=== PATIENT | female | born 1955 ===

== ENCOUNTER 2018-11-06 17:10 | Inpatient (IN) | payer OTHER ==
[~2018-11-06] VITALS: Ht 154.9 cm; Wt 97.0 kg
[2018-11-06 17:16] VITALS: Ht 154.9 cm; Wt 97.0 kg
--- NOTE | 2018-11-06 17:55 | NUR ---
BIB FAMILY MEMBER C/O PALPITATION AFTER DRINKING COFFEE TODAY. ONSET 1500. STATES UNUSUAL SENSATION TO CHEST. COMFORT MEASURES AND SUPPORTIVE CARE INITIATED. SEE BY DR. PERSAUD.
[2018-11-06 18:25] LABS: BASOPHIL % 0.9 % (0-2); PLATELET COUNT 279 x10^3mcL (130-400); RED CELL DISTRIBUTION WIDTH 14.5 % (11.5-14.5)
--- NOTE | 2018-11-06 18:31 | NUR ---
PT RESTING AT THIS TIME. AWAIT LAB RESULTS. DENIES ANY ACUTE DISCOMFORT. TO CONTINUE TO MONITOR.
[2018-11-06 18:45] LABS: CALCIUM 9.1 mg/dL (8.5-10.1); CARBON DIOXIDE 30.3 mmol/L (21-32); CHLORIDE SERUM 107 mmol/L (98-107); CREATININE SERUM 0.8 mg/dL (0.6-1.0); GFR1 > 60 mL/min; GLUCOSE SERUM 115 mg/dL (74-106); POTASSIUM SERUM 3.3 mmol/L (3.5-5.1); SODIUM SERUM 144 mmol/L (136-145)
[2018-11-06 18:58] LABS: ALBUMIN 3.6 g/dL (3.4-5.0); ALKALINE PHOSPHATASE 85 U/L (46-116); ALT/SGPT 25 U/L (14-59); AST/SGOT 18 U/L (15-37); BILIRUBIN TOTAL 0.4 mg/dL (0.20-1.00); TOTAL PROTEIN, SERUM 7.6 g/dL (6.4-8.2)
--- NOTE | 2018-11-06 19:05 | NUR ---
PT REPORT RECEIVED FROM TOKO TUG CAPTAIN TO ASSUME PT CARE.
--- NOTE | 2018-11-06 19:58 | NUR ---
PT REPORT CALLED TO JAMES ENGLAND TO ASSUME PT CARE.
--- NOTE | 2018-11-06 20:49 | NUR ---
PT TRANSFERRED TO 255B BY [facility] BY MAI KYLE AND ZOE RN. PT ON FULL CM FOR TRANSFER. PT AOX4, RESP EVEN AND UNLABORED, NO ACUTE DISTRESS NOTED. PT ACCEPTED BY JAMES ENGLAND TO ASSUME PT CARE. PT TRANSFERRED FROM [facility] TO BED WITHOUT INCIDENT.
[2018-11-06 21:15] LABS: CHOLESTEROL/HDL RATIO 4.1; MAGNESIUM 2.3 mg/dL (1.8-2.4); PHOSPHOROUS 3.7 mg/dL (2.5-4.9)
[2018-11-06 21:23] VITALS: BP 133/68
--- NOTE | 2018-11-06 21:26 | NUR ---
RECEIVED PT FROM ED VIA JUDY. ORIENTED PT TO ROOM AND SURROUNDINGS. IV NOTED TO RAC PATENT AND INTACT. TELE 6 PLACED ON PT READING SR WITH PVC. INSTRUCTED PT ON THE USE OF CALL LIGHT FOR ASSISTANCE. ENDORSED PT TO PRIMARY NURSE JAMES
--- NOTE | 2018-11-06 23:00 | NUR ---
NEW ADM FROM ED. RESTING QUIETLY IN BED. A/O X4, DENIES HEADACHE/DIZZINESS.SR WITH OCCA. PVCS ON THE MONITOR, DENIES CP OR ANY DISCOMFORT AT THIS TIME. RESP. EVEN AND UNLABORED, LUNG SOUNDS CLEAR. ON ROOM AIR, NO ACUTE DISTRESS NOTED. AFEBRILE AND VITAL SIGNS STABLE. ABD. SOFT , NON DISTENDED, BS ACTIVE, NO N/V NOTED.HL TO RAC, INTACT AND PATENT. SKIN WARM AND DRY TO TOUCH. INTACT, TRACE EDEMA TO BLE. ALL PULSES PALPABLE. AMBULATORY. CALL LIGHT WITHIN REACH. WILL CONTINUE TO MONITOR.
--- NOTE | 2018-11-06 23:31 | NUR ---
DUE MEDS GIVEN ORDERED, TRISTAN. WELL. WILL CONTINUE TO MONITOR.
--- NOTE | 2018-11-07 01:21 | NUR ---
RESTING QUIETLY IN BED, WITH EYES CLOSED, APPEARS ASLEEP, EASILY AROUSABLE . RESP. EVEN AND UNLABORED. NO ACUTE DISTRESS NOTED. WILL CONTINUE TO MONITOR.
[2018-11-07 06:03] VITALS: BP 128/62
--- NOTE | 2018-11-07 06:04 | NUR ---
NO COMPLAINTS NOTED. DENIES CP OR ANY DISCOMFORT. RESP. EVEN AND UNLABORED. NO ACUTE DISTRESS NOTED. AFEBRILE AND VITAL SIGNS STABLE. KEPT COMFORTABLE. CALL LIGHT WITHIN REACH. WILL CONTINUE TO MONITOR.
--- NOTE | 2018-11-07 08:02 | NUR ---
RECEIVED PATIENT FROM NIGHT NURSE. AWAKE, ALERT AND APPEARS ORIENTED. MONITOR SHOWING SINUS RHYTHM; RATE 60'S. NO ECTOPIES NOTED. NO C/O CHEST PAIN. RESPIRATIONS REGULAR. NO SOB NOTED. SITTING UP IN BED EATING BREAKFAST. IV SALINE LOCKED.
[2018-11-07 08:53] VITALS: BP 124/62
--- NOTE | 2018-11-07 10:30 | NUR ---
SEEN BY DR CHATMAN DURING MORNING ROUNDS. SPOKE WITH PATIENT IN STATELESS. ECHOCARDIOGRAM COMPLETED.
[2018-11-07 11:55] VITALS: BP 100/51
[2018-11-07 11:57] VITALS: BP 123/79
--- NOTE | 2018-11-07 13:37 | NUR ---
SEEN BY DR GARY (CARDIOLOGY). NEW ORDERS RECEIVED.
--- NOTE | 2018-11-07 14:21 | NUR ---
GIVEN 40 MEQ KCL PO FOR K+ OF 3.3
[2018-11-07 16:47] VITALS: BP 127/56
--- NOTE | 2018-11-07 18:22 | NUR ---
AT 1630 - PLAN TO DC HOME ONCE XARALTO HAS BEEN APPROVED BY INSURANCE. AT 1710 - COMMENCED ON XARELTO. FIST DOSE ADMINISTERED. SPOKE WITH PATIENT AND FAMILY ABOUT PLAN OF CARE. AT 1740 - SPOKE WITH [facility] [phone], INSTRUCTED TO CHECK IF XARELTO HAD BEEN APPROVED FOR PATIENT. TOLD THAT [facility] DOES NOT WORK WITH PATIENT'S INSURANCE ([employer]). AT 1825 - RESTING QUIETLY. MONITOR SHOWING SINUS RHYHTM; RATE 65. NO ECTOPEIS NOTED. NO C/O CHEST PAIN. WILL ENDORSE CARE TO NIGHT NURSE. -
--- NOTE | 2018-11-07 18:44 | NUR ---
BP NOW 133/76. HR 80'S. SINUS RHYTHM,. NO CHEST PAIN. WILL ENDORSE CARE TO NIGHT NURSE.
--- NOTE | 2018-11-07 19:35 | NUR ---
SHIFT REASSESSMENT DONE.PATIENT ALERT AND ORIENTED,MAINLY SYRIAC,NEEDS ANTICIPATED.CXR MILD VASCULAR CONGESTION,HEPLOCK ONLY.TELE 6 SR.NO CHEST PAIN.SKIN INTACT.ON XARELTO.VOIDING,CALL LIGHT IN REACH.
--- NOTE | 2018-11-07 20:23 | NUR ---
NO PM MEDS AT THIS TIME,NO COMPLAINT.CALL LIGHT IN REACH.
[2018-11-07 20:44] VITALS: BP 135/76
--- NOTE | 2018-11-07 23:23 | NUR ---
PATIENT CHECKED AT INTERVALS FOR NEEDS AND SAFETY.CALL LIGHT IN REACH.
--- NOTE | 2018-11-08 04:50 | NUR ---
PATIENT SLEEPING COMFORTABLY,CALL LIGHT IN REACH.
[2018-11-08 05:43] VITALS: BP 130/70
--- NOTE | 2018-11-08 05:59 | NUR ---
I AND O MEASURED.NO MAJOR CHANGES THIS SHIFT.WILL ENDORSE TO NEXT SHIFT.
[2018-11-08 06:53] LABS: CALCIUM 8.7 mg/dL (8.5-10.1); CARBON DIOXIDE 31.3 mmol/L (21-32); CHLORIDE SERUM 110 mmol/L (98-107); CREATININE SERUM 0.7 mg/dL (0.6-1.0); GFR1 > 60 mL/min; GLUCOSE SERUM 108 mg/dL (74-106); PHOSPHOROUS 3.1 mg/dL (2.5-4.9); POTASSIUM SERUM 5.1 mmol/L (3.5-5.1); SODIUM SERUM 146 mmol/L (136-145)
--- NOTE | 2018-11-08 07:03 | NUR ---
RECEIVED BED SIDE REPORT FROM FARM TRACTOR MECHANIC NURSE MICHELET. PATIENT IS STABLE, NO APPARENT SIGNS OF PAIN, SOB, OR RESPIRATORY DISTRESS. ON ROOM AIR. IV TO RAC SALINE LOCKED, NO EDEMA OR ERYTHEMA NOTED AT SITE. ON TELE 6. QUESTIONS AND CONCERNS ADDRESSED. CALL LIGHT AND PHONE WITHIN REACH, BED IN LOW POSITION. SAFETY PRECAUTIONS IN PLACE.
[2018-11-08 07:07] LABS: BASOPHIL % 0.7 % (0-2); PLATELET COUNT 262 x10^3mcL (130-400); RED CELL DISTRIBUTION WIDTH 14.4 % (11.5-14.5)
--- NOTE | 2018-11-08 07:40 | NUR ---
PHYSICAL ASSESSMENT COMPLETED. PLEASE SEE PROBLEM FOCUSED CARE FOR DETAILS.
[2018-11-08 08:20] VITALS: BP 138/53
--- NOTE | 2018-11-08 08:22 | NUR ---
ADMINISTERED MEDICATIONS PER EMAR. PATIENT TOLORATED WELL. EDUCATED ON NEED FOR MEDICATION WELL ADVERSE EFFECTS TO REPORT. PATIENT VERBALIZED UNDERSTANDING. QUESTIONS AND CONCERNS ADDRESSED. SAFETY PRECAUTIONS IN PLACE.
--- NOTE | 2018-11-08 09:28 | NUR ---
PATIENT RESTING COMFORTABLY INBED, FAMILY AT BEDSIDE. DENIES CHEST PAIN, PALPITATIONS OR SOB. NO APPARENT SIGNS OF RESPIRATORY DISTRESS. QUESTIONS AND CONCERNS ADDRESSED. SAFETY PRECAUTIONS IN PLACE. CALL LIGHT AND PHONE WITHIN REACH. BED IN LOW POSITION. DENIES OTHER NEEDS AT THIS TIME.
--- NOTE | 2018-11-08 10:25 | NUR ---
PATIENT RESTING COMFORTABLY INBED, FAMILY AT BEDSIDE. DENIES CHEST PAIN, PALPITATIONS OR SOB. NO APPARENT SIGNS OF RESPIRATORY DISTRESS. IV SITE WNL QUESTIONS AND CONCERNS ADDRESSED. SAFETY PRECAUTIONS IN PLACE. CALL LIGHT AND PHONE WITHIN REACH. BED IN LOW POSITION. DENIES OTHER NEEDS AT THIS TIME.
[2018-11-08 12:00] VITALS: BP 105/42
--- NOTE | 2018-11-08 12:49 | NUR ---
PATIENT IS RESTING INBED HAVING LUNCH. FAMILY AT BEDSIDE. NO APPARENT SIGNS OF PAIN SOB OR RESPIRATORY DISTRESS. PATIENT DENIES CHEST PAIN, PALPITATIONS OR DIZZINESS. DENIES OTHER NEEDS AT THIS TIME. QUESTIONS AND CONCERNS ADDRESSED. SAFETY PRECAUTIONS IN PLACE.
--- NOTE | 2018-11-08 15:07 | NUR ---
PATIENT IS RESTING COMFORTABLY IN BED, NO APPARENT SIGSN OF PAIN, SOB, OR RESPIRATORY DISTRESS. ON ROOM AIR. IV IS CDI, NO EDEMA OR ERYTHEMA NOTED TO SITE. QUESTIONS AND CONCERS ADDRESSED, SAFETY PRECAUTIONS IN PLACE.
--- NOTE | 2018-11-08 16:46 | NUR ---
ADMINISTERED MEDICATION PER EMAR. EDUCATED PATIENT ON NEED FOR MEDICATION WELL ADVERSE EFFECTS TO REPORT. PATIENT VERBALIZED UNDERSTANDING. QUESTIONS AND CONCERNS ADDRESSED. SAFETY PRECAUTIONS IN PLACE.
[2018-11-08 16:51] VITALS: BP 122/59
--- NOTE | 2018-11-08 17:48 | NUR ---
PATIENT IS RESTING COMFORTABLY IN BED, NO APPARENT SIGNS OF PAIN, SOB, OR RESPIRATORY DISTRESS. ON ROOM AIR. IV IS CDI, NO EDEMA OR ERYTHEMA NOTED TO SITE. QUESTIONS AND CONCERS ADDRESSED, SAFETY PRECAUTIONS IN PLACE.
--- NOTE | 2018-11-08 18:14 | NUR ---
PATIENT IS RESTING COMFORTABLY IN BED, NO APPARENT SIGNS OF PAIN, SOB, OR RESPIRATORY DISTRESS. PATIENT DENIES CHEST PAIN, PRESSURE. ON TELE 6. ALERT AND ORIENTED X4. IV TO RIGHT AC IS SALINE LOCKED NO EDEMA OR ERYTHEMA NOTED TO SITE. PER CASE MANAGEMENT XERALTO WAS NOT AUTHORIZED BY INSURANCE. SS TO GET APPROVAL FOR LOVENOX THEN WARFARIN. WILL ENDORSE CARE TO LOCKSTITCH BACK MAKER NURSE.
--- NOTE | 2018-11-08 19:14 | NUR ---
ENDORSED CARE TO INDUSTRIAL COFFEE GRINDER NURSE
--- NOTE | 2018-11-08 19:33 | NUR ---
REPORT TAKEN FROM CANDLES POURER NURSE AT THE BEDSIDE, PT DENIED PAIN, RESTING COMFROTABLY, TELE # 6 READING NORMAL SINUS RHYTHM AT THIS TIME. WILL CONTINUE TO MONITOR.
[2018-11-08 21:38] VITALS: BP 139/73
[2018-11-09 06:24] VITALS: BP 126/65
--- NOTE | 2018-11-09 06:55 | NUR ---
PT SLEPT WELL DURING THE NIGHT, NO NEW EVENTS TO REPORT, WILL REPORT TO DAY SHIFT NURSE AND ENDORSE CARE
[2018-11-09 07:35] VITALS: BP 109/74
--- NOTE | 2018-11-09 08:02 | NUR ---
RECEIVED PATIENT FROM TOMÁS RICHTER. PATIENT IN BED, NO COMPLAINTS OF CP AT THIS TIME. WILL CONTINUE TO MONITOR PATIENT FOR PALPITATIONS AND WAIT FOR CARE TEAM TO COME SPEAK WITH PATIENT. CALL LIGHT IN REACH.
[2018-11-09 10:26] LABS: CALCIUM 8.7 mg/dL (8.5-10.1); CARBON DIOXIDE 28.4 mmol/L (21-32); CHLORIDE SERUM 106 mmol/L (98-107); CREATININE SERUM 0.8 mg/dL (0.6-1.0); GFR1 > 60 mL/min; GLUCOSE SERUM 211 mg/dL (74-106); POTASSIUM SERUM 4.6 mmol/L (3.5-5.1); SODIUM SERUM 142 mmol/L (136-145)
--- NOTE | 2018-11-09 10:42 | NUR ---
SPOKE WITH PATIENT. SHE WOULD LIKE A COURTESY CALL TO HER SON ABOUT PLAN OF CARE. TOLD PATIENT TO WAIT FOR CARE TEAM TO COME IN TO SPEAK WITH HER FIRST BEFORE UPDATED HER SON. PATIENT AGREES. NO COMPLAINTS AT THIS TIME. CALL LIGHT IN REACH.
[2018-11-09 10:57] LABS: BASOPHIL % 0.5 % (0-2); PLATELET COUNT 254 x10^3mcL (130-400)
[2018-11-09 10:59] LABS: RED CELL DISTRIBUTION WIDTH 14.6 % (11.5-14.5)
[2018-11-09 12:23] VITALS: BP 123/69
--- NOTE | 2018-11-09 13:30 | NUR ---
DR GARY IN TO SPEAK WITH PATIENT ABOUT PLAN OF CARE. DR GARY TRANSFER PATIENT TO MED SURG. CHARGE NURSE ADRIEL INFORMED OF TRANSFER. TELEMETRY REMOVED AND RETURNED TO [facility]. CALL LIGHT IN REACH, FAMILY AT BEDSIDE.
--- NOTE | 2018-11-09 15:11 | NUR ---
PATIENT IN BED AT THIS TIME. FAMILY AT BEDSIDE. PATIENT WONDERING WHEN SHE CAN LEAVE, WILL SPEAK TO PATIENT WITH MIGUEL KELSEY FOR TRANSLATION TO UPDATE PATIENT THAT WE ARE WAITING FOR APPROVAL FOR DISCHARGE PRESCRIPTIONS. CALL LIGHT IN REACH.
[2018-11-09 16:30] VITALS: BP 114/72
[2018-11-09 17:12] VITALS: BP 114/72
[2018-11-09] MEDS ORDERED: LOV40I SC (17:23)
[2018-11-09] MEDS ORDERED: COUMADIN10 MG GT (17:23)
[2018-11-09] MEDS ORDERED: COUMADIN3 MG PO (17:25)
--- NOTE | 2018-11-09 18:59 | NUR ---
DR HAINESED IN TO SPEAK WITH PATIENT ABOUT DISCHARGE. EXPLAINED TO PATIENT COURSE OF MEDICATION FOR DISCHARGE. TOMÁS MORRIS IN TO TRANSLATE. PATIENT AND FAMILY VERBALIZE UNDERSTANDING. DIAGRAMS DRAWN BY THIS NURSE TO FURTHER EXPLAIN MEDICATION REGIMENT. FURTHER TEACHING ABOUT SC INJECTIONS TAUGHT TO PATIENT AND FAMILY, PATIENT RETURNED DEMONSTRATION. DISCHARGE INSTRUCTIONS, PACKET, AND PRESCRIPTIONS GIVEN TO PATIENT AND FAMILY. PATIENT AND FAMILY WITH BELONGINGS ESCORTED DOWNSTAIRS BY THIS NURSE. IV ACCESS REMOVED AND INTACT.
== END 2018-11-09 19:00 | disposition home or self-care (01) | DRG 201 ==
LOC: ED 17:10 → DU 19:38 → MU 11-09 13:18
PROVIDERS: Emergency Medicine; Internal Medicine; ADMIT General Practice
DX: I48.0 Paroxysmal atrial fibrillation (principal); E87.6 Hypokalemia; R73.03 Prediabetes; Z68.35 Body mass index [BMI] 35.0-35.9, adult
CPT/HCPCS: 83880; G0378; Q0092

== ENCOUNTER 2018-12-12 22:29 | Inpatient (IN) | payer OTHER ==
[~2018-12-12] VITALS: Ht 154.9 cm; Wt 92.1 kg
[~2018-12-12 22:29] MED LIST: COUMADIN10 MG GT; COUMADIN3 MG PO; LOV40I SC
--- NOTE | 2018-12-12 23:23 | NUR ---
DR OCONNELL AT BEDSIDE FOR MSE TO PATIENT
[2018-12-12 23:56] LABS: UA SPECIFIC GRAVITY <=1.005 (1.005-1.035); microscopic required? YES; urine erythrocyte 2+ (NEGATIVE)
[2018-12-12 23:56] LABS: BASOPHIL % 0.7 % (0-2); PLATELET COUNT 226 x10^3mcL (130-400)
[2018-12-12 23:58] LABS: RED CELL DISTRIBUTION WIDTH 14.7 % (11.5-14.5)
--- NOTE | 2018-12-12 23:58 | NUR ---
PT MEDICATED PER EMAR ORDERS. PLEASE SEE ORDER. PT IS RESTING IN POSITION OF COMFORT IN ED GURNEY. PT GURNEY IN LOWEST POSITION FOR PT SAFETY. NO ACD NOTED
[2018-12-13 00:02] LABS: CALCIUM 8.1 mg/dL (8.5-10.1); CARBON DIOXIDE 25.6 mmol/L (21-32); CHLORIDE SERUM 104 mmol/L (98-107); CREATININE SERUM 0.9 mg/dL (0.6-1.0); GFR1 > 60 mL/min; GLUCOSE SERUM 137 mg/dL (74-106); POTASSIUM SERUM 3.9 mmol/L (3.5-5.1); SODIUM SERUM 141 mmol/L (136-145)
[2018-12-13 00:07] LABS: ALKALINE PHOSPHATASE 71 U/L (46-116); ALT/SGPT 25 U/L (14-59); AST/SGOT 19 U/L (15-37); BILIRUBIN TOTAL 0.9 mg/dL (0.20-1.00); LIPASE 111 IU/L (73-393); TOTAL PROTEIN, SERUM 7.4 g/dL (6.4-8.2)
[2018-12-13 00:08] LABS: ALBUMIN 3.3 g/dL (3.4-5.0)
--- NOTE | 2018-12-13 00:31 | NUR ---
PT RETURNED TO ER FLOOR FROM CT VIA GURKATINA. NO SIGNS OF DISTRESS, RESP E/U.
--- NOTE | 2018-12-13 00:50 | NUR ---
ROCEPHIN INFUSING, NO INFILTRATION OR PAIN NOTED TO IV SITE. PT VERBALIZED UNDERSTANDING OF MEDICATION. SON AT THE BEDSIDE. NO DISTRESS NOTED, RESP E/U. WILL CONT TO MONITOR.
--- NOTE | 2018-12-13 02:00 | NUR ---
DR OCONNELL AT BEDSIDE DISCUSSING PLAN OF CARE. INFORMED PT ADMITTING TO HOSPITAL FOR FURTHER CARE.
[2018-12-13] MEDS ORDERED: ZESTRIL5 MG PO (02:21)
[2018-12-13] MEDS ORDERED: COUMADIN6 MG PO (02:21)
--- NOTE | 2018-12-13 02:36 | NUR ---
GAVE REPORT TO MASON ENGLAND ON TELE UNIT WHO WILL ASSUME FURHTER CARE OF THIS PATIENT.
[2018-12-13 03:04] LABS: PHOSPHOROUS 3.2 mg/dL (2.5-4.9)
--- NOTE | 2018-12-13 03:16 | NUR ---
RECEIVED PT FROM ED VIA [facility] ACCOMPANIED BY EMT. PT ABLE TO AMBULATE WITH STEADY GAIT FROM ERMATTAPONI TO BED. NO ACUTE DISTRESS NOTED. ORIENTED PT TO ROOM AND SURROUNDINGS. INSTRUCTED ON USE OF CALL LIGHT WHEN IN NEED OF ASSISTANCE. EVEN AND UNLABORED RESPIRATIONS ON RA. MEDSURG PT. DENIES ANY PAIN AT THIS TIME. IVL PATENT AND INTACT. BED IN LOWEST POSITION. SIDE RAILS UPX2. CALL LIGHT WITHIN REACH. WILL CONTINUE TO MONITOR.
[2018-12-13 03:29] VITALS: BP 112/58
[2018-12-13 05:31] VITALS: BP 98/54
--- NOTE | 2018-12-13 06:10 | NUR ---
PT SLEPT COMFORTABLY IN INTERVALS THROUGHOUT THE SHIFT. NO ACUTE DISTRESS NOTED. ALL NEEDS TENDED TO AND MET. ALL SCHEDULED MEDICATIONS GIVEN. EVEN AND UNLABORED RESPIRATIONS ON RA. MEDSURG PT. IVL PATENT AND INTACT. DENIES ANY PAIN AT THIS TIME, MEDICATIONS GIVEN IN ED WAS EFFECTIVE. BED IN LOWEST POSITION. SIDE RAILS UPX2. CALL LIGHT WITHIN REACH. WILL ENDORSE TO ONCOMING SHIFT.
[2018-12-13 06:37] LABS: BASOPHIL % 0.6 % (0-2); PLATELET COUNT 196 x10^3mcL (130-400)
[2018-12-13 06:52] LABS: RED CELL DISTRIBUTION WIDTH 14.6 % (11.5-14.5)
[2018-12-13 06:58] LABS: CALCIUM 7.7 mg/dL (8.5-10.1); CARBON DIOXIDE 27.9 mmol/L (21-32); CHLORIDE SERUM 109 mmol/L (98-107); CREATININE SERUM 0.8 mg/dL (0.6-1.0); GFR1 > 60 mL/min; GLUCOSE SERUM 115 mg/dL (74-106); POTASSIUM SERUM 4.7 mmol/L (3.5-5.1); SODIUM SERUM 144 mmol/L (136-145)
--- NOTE | 2018-12-13 07:35 | NUR ---
RECEIVED PT IN BED A/A/OX4. DENIES NAYLOR. RESP EVEN AND UNLABORED WITH CLEAR BREATHSOUNDS BILAT. DENIES ANY SOB/CP/PRESSURE AT THIS TIME. NOTED WITH TRACE EDEMA TO BLE. IV SL TO RAC. ABD SOFT, OBESE, NONTENDER WITH ACTIVE BS X4. DENIES ANY N/V AT THIS TIME. VOIDING FREELY, DENIES ANY PAIN OR BLOOD WHEN URINATING OR ANY FLANK PAIN. AMBULATORY, CALL LIGHT IN REACH NEEDS ATTENDED TO.
[2018-12-13 07:45] VITALS: BP 103/62
--- NOTE | 2018-12-13 11:30 | NUR ---
PT RESTING AT THIS TIME. WITH EYES CLOSED DENIES ANY DISCOMFORT. CALL LIGHT IN REACH NEEDS ATTENDED TO.
[2018-12-13 12:13] VITALS: BP 130/60
--- NOTE | 2018-12-13 14:31 | NUR ---
PT C/O MILD NAYLOR 07/20, MEDICATED WITH TYLENOL PER EMAR.
[2018-12-13 16:23] VITALS: BP 99/54
--- NOTE | 2018-12-13 18:09 | NUR ---
PT RESTING AT THIS TIME DENIES ANY DISCOMFORT. VOIDING FREELY, DENIES ANY PAIN WITH URINATION. NO S/SX OF BLEEDING REPORTED OR NOTED. FAMILY REMAINS AT BEDSIDE. CALL LIGHT IN REACH NEEDS ATTENDED TO.
--- NOTE | 2018-12-13 19:20 | NUR ---
CARE ASSUMED FROM OUTGOING RN. PT RESTING COMFORTABLY IN BED. NO ACUTE DISTRESS NOTED. EVEN AND UNLABORED RESPIRATION ON RA. MEDSURG PT. IVL INTACT. DENIES ANY PAIN AT THIS TIME. BED IN LOWEST POSITION. SIDE RAILS UPX2. CALL LIGHT WITHIN REACH. WILL CONTINUE TO MONITOR.
--- NOTE | 2018-12-14 00:02 | NUR ---
PT ASLEEP COMFORTABLY IN BED. NO ACUTE DISTRESS NOTED. EVEN AND UNLABORED RESPIRATIONS ON RA. IVL PATENT AND INTACT. TEMP 102.5, RECHECKED AFTER TYLENOL GIVEN PER EMAR AND COOLING MEASURES INITIATED, 98.5. ANTIBIOTICS GIVEN PER EMAR. PT TOLERATED WELL. BED IN LOWEST POSITION. SIDE RAILS UPX2. CALL LIGHT WITHIN REACH. WILL CONTINUE TO MONITOR.
[2018-12-14 05:07] VITALS: BP 103/57
[2018-12-14 06:20] LABS: BASOPHIL % 0.6 % (0-2); PLATELET COUNT 209 x10^3mcL (130-400)
--- NOTE | 2018-12-14 06:25 | NUR ---
PT SLEPT COMFORTABLY IN INTERVALS THROUGHOUT THE SHIFT. ALL NEEDS TENDED TO AND MET. ALL SCHEDULED MEDICATIONS GIVEN. C/O HEADACHE, EYE PAIN, AND TEMP OF 102.0 MEDICATED PER EMAR. IV PATENT AND INTACT. BED IN LOWEST POSITION. SIDE RAILS UPX2. CALL LIGHT WITHIN REACH. WILL ENDORSE TO ONCOMING SHIFT.
[2018-12-14 06:29] LABS: RED CELL DISTRIBUTION WIDTH 14.6 % (11.5-14.5)
[2018-12-14 06:41] LABS: CALCIUM 7.9 mg/dL (8.5-10.1); CARBON DIOXIDE 26.6 mmol/L (21-32); CHLORIDE SERUM 107 mmol/L (98-107); CREATININE SERUM 0.8 mg/dL (0.6-1.0); GFR1 > 60 mL/min; GLUCOSE SERUM 119 mg/dL (74-106); MAGNESIUM 2.2 mg/dL (1.8-2.4); PHOSPHOROUS 3.1 mg/dL (2.5-4.9); POTASSIUM SERUM 4.3 mmol/L (3.5-5.1); SODIUM SERUM 143 mmol/L (136-145)
--- NOTE | 2018-12-14 07:10 | NUR ---
RECEIVED REPORT FROM ÁLVARO RN, PT IN BED W/ NO ACUTE DISTRESS
[2018-12-14 08:24] VITALS: BP 98/48
--- NOTE | 2018-12-14 09:31 | NUR ---
PT IN BED, IN NO ACUTE DISTRESS, VERBAL, [place]ER, ABLE TO MAKE NEEDS KNOWN, CALM AND COOPERATIVE, PERRLA, NO REDNESS/DRAINAGE, RESP EVEN, NO SOB/COUGH, MEDSURG, DENIED CP/PRESSURE/NAYLOR, DENIED N/V/D, CHEST RISE SYMMETRICALLY, ABD ROUND AND NONTENDER TO TOUCH, PALP PULSES, CAP REILL < 3S, TRACE PITTING EDEME BLE, UA (+), ROCEPHIN IVPB QD, DENIED BURNING W/ VOIDING AT THIS TIME, AMBULATORY, CONTINENT, IV PATENT AND NO INFILTRATION NOTED, HEPLOCKED, ALL NEEDS ADDRESSED AT THIS TIME, SAFETY MONITOR, CONTINUE TO MONITOR
--- NOTE | 2018-12-14 10:31 | NUR ---
PT RESTING IN BED W/ EYES CLOSED, IN NO APPARENT DISTRESS, CONTINUE TO MONITOR
--- NOTE | 2018-12-14 12:53 | NUR ---
PT HAD LUNCH, TAKEN WELL, REPOTED NAYLOR, 07/20, MEDICATED PER PRN EMAR, TAKEN WELL, NO ASE NOTED AT THIS TIME, DAUGHTER AT BEDSIDE, CONTINUE TO MONITOR
[2018-12-14 17:36] VITALS: BP 98/58
--- NOTE | 2018-12-14 17:44 | NUR ---
PT SITTING IN BED, IN NO ACUTE DISTRESS, DENIED PAIN/PRESURE/NAYLOR, DENIED B/V/D, VERBAL, FOLLOWED VERBAL COMMAND AND ABLE TO MAKE NEEDS KNOWN, RESP EVEN, NO SOB/COUGH, CHEST RISE SYMMETRICALLY, ABD ROUND AND NON-TENDER TO TOUCH, IV PATENT AND NO INFILTRATION NOTED, DRESSING CDI, ALL NEEDS ADDRESSED AT THIS TIME, SAFETY PROTOCOL FOLLOWED, WILL ENDORSE TO ONCOMING RN
--- NOTE | 2018-12-14 19:20 | NUR ---
RECEIVED PT FROM DAY SHIFT RN. PT ALERT AND ORIENTED X4 LATVI[place] SPEAKING AND FAMILY AT THE BEDSIDE. PT DENIES CHEST PAIN OR SHORTNESS OF BREATH AT THIS TIME ON ROOM AIR. PT COMPLAINING OF MINOR HEADACHE. WILL MEDICATE PER ORDER. PT DENIES FLANK PAIN AT THIS TIME OR PAIN WITH URINATION. PT IS AMBULATORY BUT INSTRUCTED PT TO CALL FOR ASSISTANCE IF FEELING LIGHT HEADED OR SHORT OF BREATH WHEN ATTEMPTING TO AMBULATE. THERE IS A RAC 20G IV THAT IS CLEAN DRY AND INTACT AT THIS TIME. SAFETY MEASURES ARE IN PLACE. BED IS IN THE LOWEST POSITION. CALL LIGHT IS WITHIN REACH. WILL CONTINUE TO MONITOR PT.
[2018-12-14 20:43] VITALS: BP 109/58
--- NOTE | 2018-12-15 02:18 | NUR ---
PT RESTING IN BED WITH EYES CLOSED. NO FACIAL GRIMMACING NO USE OF ACCESSORY MUSCLES OR LABORED BREATHING.
[2018-12-15 06:04] VITALS: BP 124/69
[2018-12-15 06:47] LABS: BASOPHIL % 0.6 % (0-2); PLATELET COUNT 221 x10^3mcL (130-400)
[2018-12-15 06:53] LABS: RED CELL DISTRIBUTION WIDTH 14.6 % (11.5-14.5)
--- NOTE | 2018-12-15 07:00 | NUR ---
RECIEVED PT RESTING IN BED SITH NO C/O PAIN, DISTRESS, OR SOB. A/O X4, NO NAYLOR OR DIZZINESS AT THIS TIME. SALINE LOCK TO RAC INTACT AND PATENT WITH NO REDNESS OR INFLAMMATION. SAFETY PRECAUTINS IN PLACE, CALL LIGHT WITHIN REACH, WILL MONITOR.
[2018-12-15 07:13] LABS: CALCIUM 8.1 mg/dL (8.5-10.1); CARBON DIOXIDE 27.6 mmol/L (21-32); CHLORIDE SERUM 109 mmol/L (98-107); CREATININE SERUM 0.8 mg/dL (0.6-1.0); GFR1 > 60 mL/min; GLUCOSE SERUM 109 mg/dL (74-106); POTASSIUM SERUM 4.5 mmol/L (3.5-5.1); SODIUM SERUM 144 mmol/L (136-145)
[2018-12-15 08:29] VITALS: BP 120/73
--- NOTE | 2018-12-15 10:00 | NUR ---
PT STABLE WITH NO C/O OF ANY DISTRESS AT THIS TIME. SAFETY PRECAUTIONS IN PLACE, CALL LIGHT WITHIN REACH, WILL MONITOR.
--- NOTE | 2018-12-15 13:30 | NUR ---
PT STABLE WITH NO C/O OF ANY DISTRESS AT THIS TIME. ALL NEEDS ATTENDED TO. SAFETY PRECAUTIONS IN PLACE, CALL LIGHT WITHIN REACH, WILL MONITOR.
--- NOTE | 2018-12-15 15:34 | NUR ---
PT C/O 8/ ABD PAIN AND STATES PAIN IS MOVING TO UPPER ABD AREA. POLY OPERATOR NOTIFIED AND WILL ORDER A KUB AND STRONGER PAIN MEDICATION. WILL CARRY OUT ANY NEW ORDERS AND CONTINUE TO MONITOR PT.
[2018-12-15 17:19] VITALS: BP 119/68
--- NOTE | 2018-12-15 17:47 | NUR ---
PT STABLE AT THIS TIME WITH NO C/O PAIN OR DISTRESS. TOLERATED ALL CARES WELL. VS WNL. A/OX4 WITH NO NAYLOR OR DIZZINESS. RESTING COMFORTABLY IN BED. IV INTACT AND PATENT TO RAC, NO REDNESS OR INFLAMMATION NOTED. SAFETY PRECAUTIONS IN PLACE, CALL LIGHT WITHIN REACH, WILL ENDORSE CARE TO NIGHT NURSE.
--- NOTE | 2018-12-15 19:30 | NUR ---
PT RECIEVED FROM DAY NURSE. PT RESTING IN BED AT THIS TIME, DENIES PAIN OR DISCOMFORT AT THIS TIME. A/OX4, CALM AND COOPERATIVE. PT MS, DENIES CP, NV, DIZZINESS OR PALPATIONS. PALPABLE PULSES, TRACE EDEMA TO BLE. BREATHING E/U ON RA. DENIES SOB. AND SOFT AND ROUND, DENIES PAIN TO PALPATION. AMBULATORY AT BASELINE. RAC IV, INTACT. ALL QUESTIONS AND CONCERNS ADRESSED AT THIS TIME. BED AT LOWEST POSITION. CALL LIGHT WITHIN REACH. WILL CONTINUE TO MONITOR.
[2018-12-15 21:26] VITALS: BP 108/61
--- NOTE | 2018-12-16 00:57 | NUR ---
PT RESTING IN BED AT THIS TIME. BREATHING E/U. DENIES PAIN OR DISCOMFORT. NO SIGNS OF ACUTE DISTRESS NOTED AT THIS TIME. WILL CONTINUE TO MONITOR.
[2018-12-16 05:23] VITALS: BP 110/59
--- NOTE | 2018-12-16 06:20 | NUR ---
PT RESTING IN BED AT THIS TIME. DENIES PAIN AND DISCOMFORT AT THIS TIME. BREATHING E/U ON RA. NO SIGNS OF ACUTE DISTRESS AT THIS TIME. ALL NEEDS AND CONCERNS ADDRESSED THIS SHIFT. BED AT LOWEST POSITION. CALL LIGHT WITHIN REACH. WILL ENDORSE TO DAY NURSE.
--- NOTE | 2018-12-16 07:30 | NUR ---
RECEIVED PATIENT SITTING UP ON THE SIDE OF THE BED. ALERT ORIENTED, [place] SPEAKING. DIRECTOR OF RESOURCE DEVELOPMENT AT BEDSIDE TO TRANSLATE. HL RT A/C PATENT. RESP EVEN AND UNLABORED. LUNGS CLEAR ON ROOM AIR. ABD SOFT BOWEL SOUNDS ACTIVE. DENIES ANY N/V/D AT THIS TIME. LBM YESTERDAY PER PATIENT. AMBULATES AD ALEX. NO ACUTE DISTRESS NOTED.
[2018-12-16 07:52] VITALS: BP 99/64
--- NOTE | 2018-12-16 11:24 | NUR ---
PATIENT REMAINS IN BED SITTING UP ON THE SIDE. CONTINUES TO DENY ANY PAIN OR DISCOMFORT.
--- NOTE | 2018-12-16 13:13 | NUR ---
Initial Nutrition Assessment Dx: Pyelonephritis PMHx: Afib PSHx: Cholecystectomy, Hernia Repair Labs: (12/16) BG 109H, Ca 8.1L Meds: Rocephin, Ultram, Zestril, Diet: Cardiac PO Intake: 80-100% x 3 days Ht: 155 cm Wt: 92.1 kg BMI: 38.4 (Obesity Class II) IBW: 105# %IBW: 193% AJBW: 58.9 kg UBW: 200# Age: 63 y/o elderly female Food Allergies: NKFA Skin: Intact Raymon: 21 Edema: trace to BLE GI: Last BM: x 1 (12/15) Per H and P, pt. admitted with worsening abdominal pain without nausea, vomiting, or loose stools. Endorses continued abdominal pain at this time without GI distress associated with current diet order. Reports good appetite and tolerance to diet. Denies recent weight changes x 1 month. Problem with: N/V/D/C: None, +abdominal pain Problems with: Chewing: N Swallowing: N Current appetite: Good Recent wt change: None %wt change: N/A Vitamin/Supplement use: None Special diet at home: Regular diet Physical activity: Some walking on an occasional basis, none at this time d/t acute illness Education: Notified pt. of Cardiac diet and the associated restrictions. Declined further diet education at this time. Estimated Nutritional Needs Based on AJBW body weight 58.9 kg Energy: 4410-3258 kcal/d (25-30 kcal/kg-geriatric maintenance) Protein: 59-70 g/d (1.0-1.2 g/kg)-geriatric maintenance Fluid: 7766-0585 ml/d (1 ml/kcal) or per doctor Nutrition Diagnosis 1. Obese Class II r/t sedentary lifestyle 2/2 acute illness AEB measured BMI 38.4. Intervention 1. Continue Cardiac diet as ordered and as tolerated. If PO intake <75% by following assessment, consider adding ONS to diet regimen. Monitor/Evaluate Goal: PO intake at least 75% of estimated needs Monitor: PO intake, Labs, GI function, skin F/U in 7 days as low risk (12/23)
--- NOTE | 2018-12-16 13:14 | NUR ---
Intervention 1. Continue Cardiac diet as ordered and as tolerated. If PO intake <75% by following assessment, consider adding ONS to diet regimen.
--- NOTE | 2018-12-16 13:45 | NUR ---
NOTIFIED AISSATOU ALEGRIA THAT INR LEVEL OF 3.4 WAS FROM YESTERDAY AND WE DID NOT HAVE INR FOR TODAY. RETAIL SPECIAL EVENT ASSOCIATE STATED SHE WOULD ORDER LAB AND TO BE NOTFIED OF LEVEL WHEN AVAILABLE. STATED SHE WOULD D/C PT IF INR WITH IN THERAPEUDIC RANGE AND WOULD CALL IN MEDICATION IF NEEDED.
--- NOTE | 2018-12-16 14:40 | NUR ---
PATIENT REMAINS IN BED, AWAKE AND ALERT. DELIVERER OUTSIDE AT BEDSIDE. PT CONTINUES TO DENY ANY PAIN OR DISCOMFORT.
--- NOTE | 2018-12-16 15:23 | NUR ---
PATIENT IS IN BED, CONTINUES TO DENY ANY PAIN OR DISCOMFORT.
[2018-12-16 15:31] VITALS: BP 99/64
[2018-12-16 15:47] VITALS: BP 102/60
--- NOTE | 2018-12-16 16:15 | NUR ---
RECEIVED CALL BACK FRON OPTOMETRY DOCTOR AIRAM MADE AWARE OF INR RESULTS OF 2.0. PER OPTOMETRY DOCTOR WILL D/C PT HOME AND CALL IN RX FOR COUMADIN 4MG AND ATB FOR UTI TO PT'S REPORTED PHARMACY [facility] ON [address] IN [place]. ATTENDING NURSE NOTIFIED.
[2018-12-16] MEDS ORDERED: LEVAQUIN750 MG PO (16:18)
--- NOTE | 2018-12-16 16:18 | NUR ---
DIRECTOR INDUSTRIAL MUSEUM CALLED BACK AND ASKED IF SHE COULD ORDER A DOSE OF COUMADIN TO GIVE TO PT BEFORE D/C. TO INSURE TODAY'S DOSE IS GIVEN. PER DIRECTOR INDUSTRIAL MUSEUM WILL ORDER A DOSE. ATTENDING NURSE NOTIFIED.
[2018-12-16] MEDS ORDERED: COUMADIN4 MG PO (16:19)
--- NOTE | 2018-12-16 17:18 | NUR ---
PER PATIENT SHE CALLED HER CLINIC AND MADE APPT FOR WEDNESDAY AT 12 NOON TO SEE HER DOCTOR, AND ALSO HAS APPT TO HAVE HER LABS DRAWN THE NEXT DAY ON WEDNESDAY OF NEXT WEEK. PATIENT INFORMED THAT HER NEW PRESCRIPTIONS FOR LEVOFLOXACIN AND WARFARIN HAVE ALREADY BEEN CALLED INTO HER [facility] IN [place] ON . WILL DISCHARGE PATIENT ORDERED AFTER HER 1800 COUMADIN DOSE IS GIVEN.
--- NOTE | 2018-12-16 18:40 | NUR ---
PATIENT READY FOR D/C HOME. KIMMIE ALEJO'D. DISCHARGE INSTRUCTIONS TRANSLATED IN [place] FOR PATIENT AND FAMILY MEMBERS WHO ARE AT BEDSIDE BY [facility] SPEAKING MIGUEL. PATIENT ALREADY STATES SHE HAS HER FOLLOW UP APPT ON WEDNESDAY AT NOON, AND IS HAVING HER LAB WORK DRAWN THE NEXT DAY ON WEDNESDAY. PATIENT INSTRUCTED TO GO TO HER [facility] IN [place] ON [address] TO [employer] MANAGER HER NEW PREXCRIPTIONS. PATIENT AND FAMILY INSTRUCTED NOT TO TAKE ANY WARFARIN UNTIL TOMORROW THAT A DOSE WAS ALREADY GIVEN THIS EVENING. PATIENT ALSO INSTRUCTED TO STOP WARFARIN 6MG AT HOME AND ONLY TAKE THE NEW SCRIPT FOR 4MG UNTIL SHE FOLLOWS UP WITH HER PHYSICIAN. MEDICATION AND UTI EDUCATION PROVIDED. CONDITION APPEARS STABLE.
== END 2018-12-16 18:43 | disposition home or self-care (01) | DRG 463 ==
LOC: ED 22:29 → MU 12-13 02:09
PROVIDERS: Emergency Medicine; Internal Medicine; ADMIT Internal Medicine
DX: N39.0 Urinary tract infection, site not specified (principal); I48.91 Unspecified atrial fibrillation; E83.51 Hypocalcemia; B96.20 Unspecified Escherichia coli [E. coli] as the cause of diseases classified elsewhere; I10 Essential (primary) hypertension; Z79.01 Long term (current) use of anticoagulants
CPT/HCPCS: G0378; J0696; J2270; J2405; J7050; J7060; Q0092

== ENCOUNTER 2018-12-24 12:00 | Emergency (ER) | payer OTHER ==
[~2018-12-24] VITALS: Ht 167.6 cm; Wt 91.6 kg
[~2018-12-24 12:00] MED LIST changes: +COUMADIN4 MG PO; +COUMADIN6 MG PO; +LEVAQUIN750 MG PO; +ZESTRIL5 MG PO
[2018-12-24 12:27] VITALS: Ht 167.6 cm; Wt 91.6 kg
[2018-12-24 13:54] LABS: BASOPHIL % 0.6 % (0-2); PLATELET COUNT 395 x10^3mcL (130-400)
[2018-12-24 14:02] LABS: CALCIUM 8.1 mg/dL (8.5-10.1); CARBON DIOXIDE 27.1 mmol/L (21-32); CHLORIDE SERUM 110 mmol/L (98-107); CREATININE SERUM 0.8 mg/dL (0.6-1.0); GFR1 > 60 mL/min; GLUCOSE SERUM 89 mg/dL (74-106); POTASSIUM SERUM 4.1 mmol/L (3.5-5.1); SODIUM SERUM 145 mmol/L (136-145)
[2018-12-24 14:06] LABS: RED CELL DISTRIBUTION WIDTH 14.8 % (11.5-14.5)
[2018-12-24 17:11] VITALS: BP 142/85
== END 2018-12-24 17:12 | disposition home or self-care (01) ==
LOC: ED 12:00
PROVIDERS: Emergency Medicine
DX: M25.561 Pain in right knee (principal); M79.605 Pain in left leg; R60.0 Localized edema; R79.1 Abnormal coagulation profile; M79.89 Other specified soft tissue disorders; Z90.49 Acquired absence of other specified parts of digestive tract; Z98.890 Other specified postprocedural states
CPT/HCPCS: 36415; Q0092